=== PATIENT | female | born 1950 | race Caucasian/White ===

== ENCOUNTER 2020-03-01 09:31 | Day surgery (SDC) | payer MEDICARE ==
[~2020-03-01] VITALS: Ht 152.4 cm; Wt 68.8 kg
[~2020-03-01 09:31] MED LIST: ASPI81TA45 PO; BUPIVACAINE/PF 0.25% ONE; CEFAZOLIN 1,000 MG ONE; FENTANYL PF 100 MCG/2ML ONE; GLYCOPYRROLATE 0.2MG/1ML, 5ML ONE; NEOSTIGMINE 1 MG/ML, 10ML ONE; ONDANSETRON 2MG/ML, 2ML ONE; PROPOFOL 10 MG/ML, 20ML ONE; ROCURONIUM 10MG/ML,5ML ONE; STATIN PO; SUCCINYLCHOLINE 20 MG/ML, 10ML ONE; TYLENOL PM PO; VITA100C10 PO
[2020-03-01 09:53] VITALS: BP 144/78
[2020-03-01] MEDS ORDERED: CHLORHEXIDINE 15 ML UDC MM ONE (10:00)
[2020-03-01] MEDS ORDERED: LACTATED RINGERS 1,000 ML IV SCH (10:00)
[2020-03-01] MEDS ORDERED: DEXAMETHASONE 4 MG/ML, 1ML ONE (10:49)
[2020-03-01] MEDS ORDERED: PROMETHAZINE 25 MG SUPP PR PRN (11:30)
[2020-03-01] MEDS ORDERED: HYDROmorphone 1 MG/ML, 1ML INJ IVPush PRN (11:30)
[2020-03-01] MEDS ORDERED: PROMETHAZINE 25 MG/ML, 1ML IVPush PRN (11:30)
[2020-03-01] MEDS ORDERED: OXYcodone 5 MG/5 ML ORAL.SOL UDC PO PRN (11:30)
[2020-03-01] MEDS ORDERED: METHOCARBAMOL 1,000 MG in DEXTROSE 5% 100 ML IV PRN (11:30)
[2020-03-01] MEDS ORDERED: ONDANSETRON 2MG/ML, 2ML IVPush PRN (11:30)
[2020-03-01] MEDS ORDERED: ACETAMINOPHEN 325 MG TABLET PO PRN (11:30)
[2020-03-01] MEDS ORDERED: FENTANYL PF 100 MCG/2ML ONE ×2 (11:56→12:30)
[2020-03-01] MEDS ORDERED: SUGAMMADEX 200 MG/2 ML IVPush ONE (12:02)
[2020-03-01] MEDS ORDERED: CEFAZOLIN 1,000 MG ONE (12:02)
[2020-03-01] MEDS ORDERED: SUCCINYLCHOLINE 20 MG/ML, 10ML ONE (12:02)
[2020-03-01] MEDS ORDERED: ROCURONIUM 10MG/ML,5ML ONE (12:02)
[2020-03-01] MEDS ORDERED: PROPOFOL 10 MG/ML, 20ML ONE (12:02)
[2020-03-01] MEDS ORDERED: ONDANSETRON 2MG/ML, 2ML ONE (12:02)
[2020-03-01] MEDS ORDERED: GLYCOPYRROLATE 0.2MG/1ML, 5ML ONE (12:02)
[2020-03-01] MEDS ORDERED: NEOSTIGMINE 1 MG/ML, 10ML ONE (12:02)
[2020-03-01] MEDS ORDERED: ACETAMINOPHEN 325 MG TABLET ONE (12:30)
[2020-03-01] MEDS ORDERED: OXYcodone 5 MG/5 ML ORAL.SOL UDC ONE (12:30)
[2020-03-01] MEDS: FENTANYL PF 100 MCG/2ML IV PRN ×2 (12:31→12:40)
== END 2020-03-01 15:00 | disposition home or self-care (01) ==
LOC: OUT 09:31
PROVIDERS: ATTEND Orthopaedic Surgery
DX: M75.31 Calcific tendinitis of right shoulder (principal); M19.011 Primary osteoarthritis, right shoulder; M25.811 Other specified joint disorders, right shoulder; S46.011A Strain of muscle(s) and tendon(s) of the rotator cuff of right shoulder, initial encounter; S43.431A Superior glenoid labrum lesion of right shoulder, initial encounter; X58.XXXA Exposure to other specified factors, initial encounter; Y93.89 Activity, other specified; Y92.89 Other specified places as the place of occurrence of the external cause; Y99.8 Other external cause status; G89.18 Other acute postprocedural pain; Z98.890 Other specified postprocedural states; Z90.710 Acquired absence of both cervix and uterus
CPT/HCPCS: 29823; 29824; 29826; 64415; 93005; J0330; J0690; J1100; J2405; J2704; J2710; J3010; J7120; U0003